=== PATIENT | female | born 1960 | race Hispanic/Latino ===

== ENCOUNTER → 2024-12-17 | Outpatient (CLI) | payer MEDICARE ==
[~2024-12-17] MED LIST: CETI10CA5 PO; FLUT16H NASAL; LEVO75TA10 PO; OLOP2.5D12 OU
--- NOTE | 2024-12-17 17:06 | HMCIMG ---
CERV SPINE 4-5 VWS HISTORY: Spinal enthesopathy COMPARISON: None FINDINGS: 5 images of cervical spine were obtained including flexion and extension views. Mild osteopenia is seen. Mild cervical spine spondylosis is seen. There is straightening of normal lordotic curvature which may be related to muscle spasm or positioning. No loss of vertebral height is seen. No fracture or dislocation is seen. Degenerative changes are seen. IMPRESSION: 1. No fracture is seen.
== END | disposition home or self-care (01) ==
LOC: RAH 14:35
PROVIDERS: ATTEND Physical Medicine & Rehabilitation
DX: M47.812 Spondylosis without myelopathy or radiculopathy, cervical region (principal); M46.02 Spinal enthesopathy, cervical region; M85.88 Other specified disorders of bone density and structure, other site
CPT/HCPCS: 72050